=== PATIENT | female | born 1950 | race Caucasian/White ===

== ENCOUNTER → 2023-10-03 10:16 | Outpatient (REF) | payer MEDICARE, SELFPAY ==
[2023-10-03 12:17] LABS: ALT (SGPT) 25 U/L (0-35); AST (SGOT) 33 U/L (14-36); Albumin 4.2 g/dl (3.5-5.0); Alkaline Phosphatase 92 U/L (38-126); Blood Urea Nitrogen 17 mg/dl (7-17); Calcium 9.6 mg/dl (8.4-10.2); Carbon Dioxide 27 mmol/L (22-30); Chloride 106 mmol/L (98-107); Glucose 90 mg/dl (70-99); Potassium 4.1 mmol/L (3.5-5.1); Sodium 136 mmol/L (135-145); Total Bilirubin 0.7 mg/dl (0.2-1.3); Total Cholesterol 238 mg/dl (50-199); Total Protein 6.9 g/dl (6.3-8.2); Triglyceride 99 mg/dl (10-149); Very Low Density Lipoprotein 19 mg/dl (0-30); eGFR > 60.00
[2023-10-03 12:28] LABS: HDL Cholesterol 123 mg/dl; LDL Cholesterol, Calculated 96 mg/dl
[2023-10-03 12:30] LABS: Free T4 1.28 ng/dl (0.78-2.19)
[2023-10-03 12:46] LABS: TSH 1.98 uIU/ml (0.47-4.68)
== END ==
LOC: HWLAB 10:16
PROVIDERS: ATTENDING PHYSICIAN Internal Medicine
DX: E03.9 Hypothyroidism, unspecified (principal); E78.5 Hyperlipidemia, unspecified
CPT/HCPCS: 36415; 80053; 80061; 84439; 84443; 84481

== ENCOUNTER → 2024-06-08 12:53 | Outpatient (REF) | payer MEDICARE, SELFPAY | LOC: WDC 12:53 | PROVIDERS: ATTENDING PHYSICIAN Internal Medicine; OTHER PHYSICIAN Obstetrics & Gynecology Gynecology | DX: M81.0 Age-related osteoporosis without current pathological fracture (principal); Z12.31 Encounter for screening mammogram for malignant neoplasm of breast | CPT/HCPCS: 77063; 77067; 77080 ==

== ENCOUNTER → 2024-09-16 08:47 | Outpatient (REF) | payer MEDICARE, SELFPAY ==
[2024-09-16 10:20] LABS: ALT (SGPT) 30 U/L (0-35); AST (SGOT) 32 U/L (14-36); Albumin 4.6 g/dl (3.5-5.0); Alkaline Phosphatase 81 U/L (38-126); Blood Urea Nitrogen 20 mg/dl (7-17); Carbon Dioxide 27 mmol/L (22-30); Chloride 102 mmol/L (98-107); Glucose 90 mg/dl (70-99); HDL Cholesterol 109 mg/dl; Potassium 4.6 mmol/L (3.5-5.1); Sodium 138 mmol/L (135-145); Total Bilirubin 0.8 mg/dl (0.2-1.3); Total Cholesterol 237 mg/dl (50-199); eGFR > 60.00
[2024-09-16 11:14] LABS: LDL Cholesterol, Calculated 113 mg/dl; Triglyceride 76 mg/dl (10-149); Very Low Density Lipoprotein 15 mg/dl (0-30)
[2024-09-16 12:29] LABS: Free T3 2.87 pg/ml (2.77-5.27); Free T4 1.23 ng/dl (0.78-2.19)
== END ==
LOC: REG 08:47
PROVIDERS: ATTENDING PHYSICIAN Internal Medicine
DX: E03.9 Hypothyroidism, unspecified (principal); E78.5 Hyperlipidemia, unspecified
CPT/HCPCS: 36415; 80053; 80061; 84439; 84443; 84481

== ENCOUNTER → 2024-11-16 11:33 | Outpatient (REF) | payer MEDICARE, SELFPAY ==
[2024-11-16 13:20] LABS: ALT (SGPT) 25 U/L (0-35); AST (SGOT) 30 U/L (14-36); Albumin 4.6 g/dl (3.5-5.0); Alkaline Phosphatase 84 U/L (38-126); Blood Urea Nitrogen 19 mg/dl (7-17); Calcium 10.2 mg/dl (8.4-10.2); Carbon Dioxide 25 mmol/L (22-30); Chloride 106 mmol/L (98-107); Glucose 87 mg/dl (70-99); Potassium 4.6 mmol/L (3.5-5.1); Sodium 138 mmol/L (135-145); Total Bilirubin 0.7 mg/dl (0.2-1.3); Total Protein 7.1 g/dl (6.3-8.2); eGFR > 60.00
[2024-11-16 13:36] LABS: Free T3 3.79 pg/ml (2.77-5.27); Free T4 1.77 ng/dl (0.78-2.19); Vitamin D, 25-OH*** 51.8 ng/mL (30-80)
[2024-11-16 13:48] LABS: TSH 0.72 uIU/ml (0.47-4.68)
[2024-11-16 13:53] LABS: IgA 97 mg/dl (70-400)
[2024-11-16 14:44] LABS: Hematocrit 43.2 % (37.0-47.0); Hemoglobin 14.4 g/dL (12.0-16.0); Mean Corp Hgb Conc. 33.3 g/dL (33.0-37.0); Mean Corpuscular Hgb 30.6 pg (27.0-31.0); Mean Corpuscular Volume 91.9 fL (81.0-99.0); Mean Platelet Volume 10.5 fL (7.4-10.4); Platelet Count 234 10^3/uL (130-400); Red Cell Dist. Width 12.3 % (11.5-14.5); White Blood Cell Count 6.4 10^3/uL (4.8-10.8)
[2024-11-16 15:15] LABS: % Basophils 0.8 % (0-2); % Immature Granulocytes 0.3 % (0-0.5); % Lymphocytes 38.1 % (20.5-51.1); % Monocytes 9.9 % (1.7-9.3); % Neutrophils 48.9 % (42.2-75.2); Absolute Basophils 0.1 10^3/uL (0-0.2); Absolute Eosinophils 0.1 10^3/uL (0-0.7); Absolute Lymphocytes 2.4 10^3/uL (1.2-3.4); Absolute Monocytes 0.6 10^3/uL (0.1-0.6); Absolute Neutrophils 3.1 10^3/uL (1.4-6.5); Nucleated Red Blood Cells % 0 %
[2024-11-17 10:24] LABS: Intact PTH 61.7 pg/ml (13.6-85.8)
[2024-11-17 15:47] LABS: Endomysial IgA Antibody Titer <1:10 (<1:10)
[2024-11-17 18:19] LABS: tTG IgA Antibody <1.02 FLU (0.00-4.99)
== END ==
LOC: REG 11:33
PROVIDERS: ATTENDING PHYSICIAN Internal Medicine; FAMILY PHYSICIAN Student in an Organized Health Care Education/Training Program
DX: E03.9 Hypothyroidism, unspecified (principal); E55.9 Vitamin D deficiency, unspecified; M81.0 Age-related osteoporosis without current pathological fracture; Z51.81 Encounter for therapeutic drug level monitoring
CPT/HCPCS: 36415; 80053; 82306; 82784; 83516; 83970; 84439; 84443; 84481; 85025; 86231

== ENCOUNTER → 2024-11-18 08:27 | Outpatient (REF) | payer MEDICARE, SELFPAY ==
[2024-11-18 10:18] LABS: Urine Calcium 12.2 mg/dl
[2024-11-18 10:19] LABS: 24 Hour Urine Total Volume 2000 ml
== END ==
LOC: REG 08:27
PROVIDERS: ATTENDING PHYSICIAN Student in an Organized Health Care Education/Training Program; FAMILY PHYSICIAN Internal Medicine
DX: E03.9 Hypothyroidism, unspecified (principal); E55.9 Vitamin D deficiency, unspecified; M81.0 Age-related osteoporosis without current pathological fracture; Z51.81 Encounter for therapeutic drug level monitoring
CPT/HCPCS: 81050; 82340

== ENCOUNTER → 2025-06-12 08:37 | Outpatient (REF) | payer MEDICARE, SELFPAY | LOC: WDC 08:37 | PROVIDERS: ATTENDING PHYSICIAN Internal Medicine | DX: Z12.31 Encounter for screening mammogram for malignant neoplasm of breast (principal); Z12.39 Encounter for other screening for malignant neoplasm of breast | CPT/HCPCS: 77063; 77067 ==